=== PATIENT | female | born 1995 | race Caucasian/White ===

== ENCOUNTER 2017-04-28 05:19 | Day surgery (SDC) | payer BC ==
[2017-04-03 11:05] VITALS: BMI 27.0
[~2017-04-28] VITALS: Ht 160 cm; Wt 69.9 kg
[2017-04-28] VITALS (16 sets, daily range): BP systolic 117–135; BP diastolic 61–81; PULSE 70–92; RESP 11–18; Ht 160 cm; Wt 69.9 kg
--- NOTE | 2017-04-28 06:54 | HPN ---
Date/Time of Note Date/Time of Note DATE: 04/28/17 TIME: 06:53 Interval H&P Admission Note Pt. seen H&P reviewed: No system changes DULCE LINDQUIST MD Apr 28, 2017 06:54
[2017-04-28] MEDS ORDERED: ROPIVACAINE 0.5 % 30 ML VIAL ONE (06:58)
[2017-04-28] MEDS ORDERED: POLYMYXIN/BACITRACIN 1L IRRIG ONE (06:58)
[2017-04-28] MEDS ORDERED: POVIDONE IODINE 10% 28.4 GM OINT ONE (06:58)
[2017-04-28] MEDS ORDERED: LACTATED RINGER'S 1,000 ML IV* SCH (07:00)
[2017-04-28] MEDS ORDERED: CEFAZOLIN 2 GM/50 ML (PMX) 50 ML IVPB SCH (07:00)
[2017-04-28] MEDS ORDERED: CEFAZOLIN 1 GM INJ ONE (07:13)
[2017-04-28] MEDS ORDERED: PROPOFOL 20 ML ONE (07:13)
[2017-04-28] MEDS ORDERED: ROCURONIUM 50 MG INJ ONE (07:13)
[2017-04-28] MEDS ORDERED: NEOSTIGMINE 3 MG/3 ML SYRINGE ONE (07:13)
[2017-04-28] MEDS ORDERED: ONDANSETRON 4 MG INJ ONE (07:14)
[2017-04-28] MEDS ORDERED: MIDAZOLAM 1 MG/ML 2 ML INJ ONE (07:14)
[2017-04-28] MEDS ORDERED: FENTAnyl 50 MCG/ML VIAL ONE ×2 (07:14→07:54)
[2017-04-28] MEDS ORDERED: DEXAMETHASONE 4 MG/ML 1 ML INJ ONE (07:14)
[2017-04-28] MEDS ORDERED: BACITRACIN/POLYMYXIN 28.35 GM OINT TOP ONE (08:03)
[2017-04-28] MEDS ORDERED: SUGAMMADEX SODIUM 200 MG/2 ML VIAL IV ONE (08:18)
[2017-04-28] MEDS ORDERED: METOCLOPRAMIDE 10 MG INJ ONE (08:20)
[2017-04-28] MEDS ORDERED: KETOROLAC 30 MG INJ ONE (08:25)
--- NOTE | 2017-04-28 08:56 | RADRPT ---
PROCEDURE: Intraoperative imaging of the right ankle with fluoroscopy. CLINICAL INDICATION: Right ankle pain. Intraoperative. TECHNIQUE: 3 images of the right ankle were obtained in the operating room with an image intensifi er. No radiologist was in attendance. Fluoroscopy time is 0.1 minutes. COMPARISON: 12/11/2015 FINDINGS: Surgical instruments are noted overlying the right ankle. Images demonstrate removal of the 2 cannulated screws from the right ankle. IMPRESSION: 1. Intraoperative imaging of the right ankle. RPTAT: QQ .Lee España MD, MD Date Time Electronically viewed and signed by .Lee España MD, MD on 04/28/2017 08:56 .R/
[2017-04-28] MEDS ORDERED: SOD CHLORIDE 0.9% 1,000 ML IV SCH (09:25)
--- NOTE | 2017-04-28 09:25 | OPPN ---
Date/Time of Note Date/Time of Note DATE: 04/28/17 TIME: 09:24 Operative Report Preoperative Diagnosis R ankle painful retained hardware Postoperative Diagnosis same Operation/Procedure Performed Removal of deep hardware R ankle Surgeon see signature line patient care assistant MD Ayesha Anesthesia: general Estimated blood loss: 0 - 10 ml's Transfusion Required none Specimen none Grafts/Implants none Complications none DULCE LINDQUIST MD Apr 28, 2017 09:25
[2017-04-28] MEDS ORDERED: ONDANSETRON 4 MG INJ IV PRN (09:30)
[2017-04-28] MEDS ORDERED: morphine 2 MG INJ IV PRN (09:30)
[2017-04-28] MEDS ORDERED: OXYCODONE/ACETAMINOPHEN (5/325) TAB PO PRN ×2 (09:30)
--- NOTE | 2017-04-28 09:32 | OPR ---
DATE OF OPERATION: 04/28/2017 PREOPERATIVE DIAGNOSES: 1. Status post arthroscopic fusion of the right ankle with 2 screws. 2. Painful hardware. POSTOPERATIVE DIAGNOSES: 1. Status post arthroscopic fusion of the right ankle with 2 screws. 2. Painful hardware. OPERATION PERFORMED: Removal of two 7.3 AO cannulated screws from the right ankle. SURGEON: Kyaw Padgett MD LINUX SERVER ENGINEER: Joseph Hodge ANESTHESIA: General. TOURNIQUET TIME: Zero. DESCRIPTION OF PROCEDURE: The patient taken to the operating room, placed in supine position, which is satisfactory. General anesthesia was administered, 1 gram Ancef given intravenously. The right leg was prepped and draped in the usual manner. Fluoroscopy was brought in. We marked where the i ncision should be by the screws medially and laterally. Incision was made through the old scar in t he lateral fibula and dissection carried down to subcutaneous tissue. Care was taken to protect the peroneal tendons. Electrosurgery was used to expose the tip of the screw. A curet was used to cur et around it and then guide pin was placed from the 7.3 AO cannulated screw set. The screw was then removed. Wounds were irrigated with antibiotic solution. The subcutaneous tissue was closed with 3-0 undyed Vicryl and skin with 4-0 black nylon. Incision was then made over the medial screw through the previous incision. Dissection carried down to subcutaneous tissue. Electrosurgery was used to expose the screw. The curet was used to remove all the debris. Guide pin was inserted and the screw was removed. Wounds irrigated with antibioti c solution. Final fluoroscopic view showed good position and alignment of the healed ankle arthrode sis. It was solidly healed. Subtalar joint looked intact in the AP and lateral directions. The me dial wound was closed with 3-0 undyed Vicryl and 4-0 black nylon. Compression was applied as well a s EVITA stocking and Cam walker boot in neutral position. At the end of procedure, sponge and needle count was correct. The patient tolerated the procedure well. Dictated By: KYAW MAYER/NTS Conf#: [id number] DID#: [id number]
== END 2017-04-28 10:35 | disposition home or self-care (01) ==
LOC: SDS 05:19
PROVIDERS: ATTEND Orthopaedic Surgery
DX: T84.84XA Pain due to internal orthopedic prosthetic devices, implants and grafts, initial encounter (principal); Y83.8 Other surgical procedures as the cause of abnormal reaction of the patient, or of later complication, without mention of misadventure at the time of the procedure; Z88.8 Allergy status to other drugs, medicaments and biological substances
CPT/HCPCS: 20680; 73610; J0690; J1100; J1885; J2250; J2405; J2765; J2795; J3010; J2710